=== PATIENT | female | born 1985 | race Two or more races ===

== ENCOUNTER → 2019-05-17 | Emergency (ER) | payer MEDICAID, OTHER ==
[~2019-05-17] VITALS: Ht 157.5 cm; Wt 104.9 kg
[2019-05-17 20:40] VITALS: BP 117/70
[2019-05-17 22:10] LABS: Urine Bacteria NONE SEEN /hpf (None Seen); Urine Blood Negative /uL (Negative); Urine Mucus FEW (None Seen); Urine WBC 1 /hpf (0 - 5)
== END | disposition home or self-care (01) ==
LOC: ER 18:28
DX: R09.81 Nasal congestion (principal); R50.9 Fever, unspecified; J06.9 Acute upper respiratory infection, unspecified
CPT/HCPCS: 71046; 81001; 87804

== ENCOUNTER 2022-01-24 18:24 | Emergency (ER) | payer MEDICAID ==
[~2022-01-24] VITALS: Ht 157.5 cm; Wt 94.0 kg
[2022-01-24 19:07] VITALS: BP 139/75
[2022-01-24] MEDS ORDERED: AMOX-277 PO (21:23)
[2022-01-24] MEDS ORDERED: ACET-1158 PO (21:23)
[2022-01-24] MEDS ORDERED: PRED20TA2 PO (21:23)
== END 2022-01-24 21:30 | disposition home or self-care (01) ==
LOC: ER 18:24
DX: J06.9 Acute upper respiratory infection, unspecified (principal); Z20.822 Contact with and (suspected) exposure to COVID-19
CPT/HCPCS: 36415; 87426; 87804

== ENCOUNTER 2022-10-21 13:46 | Emergency (ER) | payer MEDICAID ==
[~2022-10-21] VITALS: Ht 157.5 cm; Wt 98.9 kg
[~2022-10-21 13:46] MED LIST: ACET500T58 PO; AMOX875T4 PO; PRED20TA2 PO
[2022-10-21 14:06] VITALS: BP 130/52; PULSE 73; RESP 18; O2SAT 99
== END 2022-10-21 15:44 | disposition left against medical advice (07) ==
LOC: ER 13:46
DX: J02.9 Acute pharyngitis, unspecified (principal); H92.03 Otalgia, bilateral; M79.10 Myalgia, unspecified site; Z53.21 Procedure and treatment not carried out due to patient leaving prior to being seen by health care provider